=== PATIENT | female | born 1955 | race Hispanic/Latino ===

== ENCOUNTER 2016-09-11 12:55 | Outpatient (CLI) | payer MEDICARE ==
[2016-09-11 13:40] LABS: Hemoglobin A1c 8.8 % (4.0-6.0)
[2016-09-11 13:42] LABS: ALT (SGPT) 21 U/L (0-55); AST (SGOT) 28 U/L (5-34); Alkaline Phosphatase 83 U/L (40-150); Anion Gap 15 mmol/L (10-20); BUN (Urea Nitrogen) 30 mg/dL (9.8-20.1); Bilirubin, Direct 0.1 mg/dL (0.1-0.3); Bilirubin, Total 0.2 mg/dL (0.2-1.2); Calc. Creatinine Clearance 0 mL/min (70-130); Calcium 9.8 mg/dL (7.8-10.44); Carbon Dioxide 33 mmol/L (22-29); Chloride 100 mmol/L (98-107); Estimated GFR-MDRD 43; Magnesium 1.7 mg/dL (1.6-2.6); Protein, Total 8.1 g/dL (6.0-8.3)
== END 2016-09-11 12:56 | disposition home or self-care (01) ==
LOC: BURLAB 12:55
PROVIDERS: ATTEND Internal Medicine Nephrology
DX: I12.9 Hypertensive chronic kidney disease with stage 1 through stage 4 chronic kidney disease, or unspecified chronic kidney disease (principal); N18.3 Chronic kidney disease, stage 3 (moderate); R60.0 Localized edema
CPT/HCPCS: 36415; 80048; 80076; 82140; 82570; 83036; 83735; 84156

== ENCOUNTER 2016-09-23 14:07 | Outpatient (CLI) | payer MEDICARE ==
[2016-09-23 14:45] LABS: Anion Gap 14 mmol/L (10-20); BUN (Urea Nitrogen) 21 mg/dL (9.8-20.1); Calc. Creatinine Clearance 0 mL/min (70-130); Calcium 8.6 mg/dL (7.8-10.44); Carbon Dioxide 31 mmol/L (22-29); Chloride 96 mmol/L (98-107); Estimated GFR-MDRD 47
== END 2016-09-23 14:08 | disposition home or self-care (01) ==
LOC: BURLAB 14:07
PROVIDERS: ATTEND Internal Medicine Nephrology
DX: I12.9 Hypertensive chronic kidney disease with stage 1 through stage 4 chronic kidney disease, or unspecified chronic kidney disease (principal); N18.3 Chronic kidney disease, stage 3 (moderate); R60.0 Localized edema
CPT/HCPCS: 36415; 80048

== ENCOUNTER 2016-10-27 08:53 | Outpatient (CLI) | payer MEDICARE ==
[2016-10-27 09:42] LABS: Anion Gap 17 mmol/L (10-20); BUN (Urea Nitrogen) 25 mg/dL (9.8-20.1); Calc. Creatinine Clearance 0 mL/min (70-130); Calcium 8.8 mg/dL (7.8-10.44); Carbon Dioxide 37 mmol/L (22-29); Chloride 89 mmol/L (98-107); Estimated GFR-MDRD 48; Glucose 229 mg/dL (70-105); Sodium 140 mmol/L (136-145)
[2016-10-27 10:14] LABS: Potassium 2.7 mmol/L (3.5-5.1)
== END 2016-10-27 08:54 | disposition home or self-care (01) ==
LOC: BURLAB 08:53
PROVIDERS: ATTEND Family Medicine
DX: E87.6 Hypokalemia (principal)
CPT/HCPCS: 36415; 80048

== ENCOUNTER 2016-12-03 14:08 | Outpatient (CLI) | payer MEDICARE ==
[2016-12-03 15:07] LABS: Anion Gap 16 mmol/L (10-20); BUN (Urea Nitrogen) 22 mg/dL (9.8-20.1); Calc. Creatinine Clearance 0 mL/min (70-130); Calcium 8.7 mg/dL (7.8-10.44); Carbon Dioxide 29 mmol/L (22-29); Chloride 97 mmol/L (98-107); Estimated GFR-MDRD 49; Glucose 221 mg/dL (70-105); Potassium 3.1 mmol/L (3.5-5.1); Sodium 139 mmol/L (136-145)
== END 2016-12-03 14:09 | disposition home or self-care (01) ==
LOC: BURLAB 14:08
PROVIDERS: ATTEND Internal Medicine Nephrology
DX: N18.3 Chronic kidney disease, stage 3 (moderate) (principal); D63.1 Anemia in chronic kidney disease
CPT/HCPCS: 36415; 80048; 85014; 85018

== ENCOUNTER 2017-02-03 15:11 | Outpatient (CLI) | payer MEDICARE ==
[2017-02-03 15:53] LABS: #Basophils 0.1 thou/uL (0.0-0.2); #Eosinphils 0.2 thou/uL (0.0-0.7); #Lymphocytes 2.3 thou/uL (1.20-3.40); #Monocytes 0.6 thou/uL (0.11-0.59); #Neutrophils 4.6 thou/uL (1.40-6.50); %Eosinophils 2.4 % (0.0-10.0); %Lymphocytes 29.6 % (21.0-51.0); %Monocytes 7.9 % (0.0-10.0); %Neutrophils 59.1 % (42.0-75.0); Mean Corpuscular HGB CONC 33.1 g/dL (32.0-36.0); Mean Corpuscular Hemoglobin 29.7 pg (27.0-31.0); Mean Corpuscular Volume 89.8 fl (81.0-99.0); Mean Platelet Volume 8.7 fL (7.4-10.4); Platelet Count 225 thou/uL (130-400); RBC Distribution Width 14.5 % (11.5-14.5); Red Blood Cell (RBC) Count 4.71 mill/uL (4.20-5.40); White Blood Cell (WBC) Count 7.8 thou/uL (4.8-10.8)
[2017-02-03 16:13] LABS: ALT (SGPT) 31 U/L (8-55); AST (SGOT) 42 U/L (5-34); Albumin 3.5 g/dL (3.5-5.0); Alkaline Phosphatase 97 U/L (40-150); Anion Gap 19 mmol/L (10-20); BUN (Urea Nitrogen) 8 mg/dL (9.8-20.1); Bilirubin, Total 0.3 mg/dL (0.2-1.2); Calc. Creatinine Clearance 0 mL/min (70-130); Calcium 8.7 mg/dL (7.8-10.44); Carbon Dioxide 27 mmol/L (22-29); Chloride 97 mmol/L (98-107); Cholesterol 268 mg/dl (< 200 Desired); Estimated GFR-MDRD 54; Globulin 3.7 g/dL (2.4-3.5); Glucose 332 mg/dL (70-105); HDL Cholesterol 45 mg/dL (>60 Neg Risk); LDL Cholesterol, Calculated 149 mg/dL; Potassium 3.6 mmol/L (3.5-5.1); Protein, Total 7.2 g/dL (6.0-8.3); Sodium 139 mmol/L (136-145); Triglycerides 372 mg/dL (Less than 150)
[2017-02-03 16:20] LABS: Hemoglobin A1c 11.2 % (4.0-6.0)
[2017-02-03 16:24] LABS: Free T4 (Free Thyroxine) 0.92 ng/dL (0.70-1.48); Thyroid Stimulating Hormone 1.1676 uIU/mL (0.35-4.94)
== END 2017-02-03 15:12 | disposition home or self-care (01) ==
LOC: HPCALD 15:11
PROVIDERS: ATTEND Family Medicine
DX: N39.0 Urinary tract infection, site not specified (principal); E11.65 Type 2 diabetes mellitus with hyperglycemia; I10 Essential (primary) hypertension; E78.5 Hyperlipidemia, unspecified; E03.9 Hypothyroidism, unspecified
CPT/HCPCS: 36415; 80053; 80061; 83036; 84439; 84443; 85025; 87077; 87086

== ENCOUNTER 2017-03-31 10:56 | Outpatient (CLI) | payer MEDICARE | END 2017-03-31 10:57 | disposition home or self-care (01) | LOC: HPCALD 10:56 | PROVIDERS: ATTEND Family Medicine | DX: R39.9 Unspecified symptoms and signs involving the genitourinary system (principal) | CPT/HCPCS: 87077; 87086; 87186 ==